=== PATIENT | male | born 1960 | race Caucasian/White ===

== ENCOUNTER 2024-04-21 10:37 | Inpatient (IN) | payer OTHER ==
[2024-04-21 11:15] VITALS: BMI 25.6
[2024-04-21] MEDS ORDERED: ACETAMINOPHEN 325 MG TABLET (FP) PO PRN (11:41)
[2024-04-21] MEDS ORDERED: LOPERAMIDE HCL 2 MG CAPSULE PO PRN (11:41)
[2024-04-21] MEDS ORDERED: BISMUTH SUBSALICYLATE 524 MG/30 ML PO PRN (11:41)
[2024-04-21] MEDS ORDERED: BENZONATATE 200 MG CAPSULE PO PRN (11:41)
[2024-04-21] MEDS ORDERED: BENZOCAINE/MENTHOL (CHLORASEPTIC ) LOZENGE MM PRN (11:41)
[2024-04-21] MEDS ORDERED: ONDANSETRON *ODT* 4 MG TABLET SL PRN (11:41)
[2024-04-21] MEDS ORDERED: IBUPROFEN 600 MG TABLET (FP) PO PRN (11:41)
[2024-04-21] MEDS ORDERED: guaiFENesin 600 MG TABLET.ER (FP) PO PRN (11:41)
[2024-04-21] MEDS ORDERED: IBUPROFEN 400 MG TABLET (FP) PO PRN (11:41)
[2024-04-21] MEDS ORDERED: POLYETHYLENE GLYCOL (HEALTHYLAX) 3350 17 GM PACKET PO PRN (11:41)
[2024-04-21] MEDS ORDERED: MAGNESIUM HYDROX 2400MG/30ML ORAL SUSPENSION 30 ML CUP PO PRN (11:41)
[2024-04-21] MEDS ORDERED: MAG HYDROX/AL HYDROX/SIMETH 30 ML UNIT-DOSE CUP PO PRN (11:41)
[2024-04-21] MEDS ORDERED: NALOXONE (NARCAN) HCL 4 MG/0.1 ML SPRAY NS PRN (11:41)
[2024-04-21] MEDS: THIAMINE 100 MG TABLET PO SCH (22:07)
[2024-04-21] MEDS: MELATONIN 5 MG TABLETS PO SCH (22:07)
[2024-04-22 08:59] VITALS: RESP 18
[2024-04-22] MEDS: PRENATAL VITAMINS W/ FOLIC ACID TABLET (FP) PO SCH (09:24)
[2024-04-22 11:23] LABS: CHLORIDE 103 mmol/L (98-107); SODIUM 140 mmol/L (136-145)
[2024-04-22 11:25] LABS: ANION GAP 4 mmol/L (4-13); CO2 32 mmol/L (21-32); GLUCOSE,RANDOM 91 mg/dL (74-106)
[2024-04-22 11:27] LABS: HEMATOCRIT 39.3 % (35.4-49); HEMOGLOBIN 13.5 GM/dL (11.7-16.9); MCH 32.9 pg (25.7-33.7); MCHC 34.4 g/dl (32.0-35.9); MEAN CELL VOLUME 95.5 fl (80-96); MEAN PLT VOLUME 7.3 fl (7.5-11.1); PLATELET COUNT 245 10^3/uL (134-434); RBC 4.12 M/mm3 (4.00-5.60); RDW 14.2 % (11.9-15.9); WHITE BLOOD COUNT 4.9 K/mm3 (4.0-10.0)
[2024-04-22 11:28] LABS: CREATININE 0.8 mg/dL (0.55-1.3); SGOT/AST 120 U/L (15-37); SGPT/ALT 105 U/L (13-61)
[2024-04-22 11:30] LABS: BILIRUBIN,TOTAL 0.7 mg/dL (0.2-1); TOT PROT 6.5 g/dl (6.4-8.2)
[2024-04-22 11:31] LABS: ALK PHOS 115 U/L (45-117)
[2024-04-22 11:33] LABS: BLOOD UREA NITROGEN 2.7 mg/dL (7-18)
[2024-04-22 12:40] VITALS: BP 138/84; PULSE 76; TEMP 97.8
== END 2024-04-22 14:25 | disposition home or self-care (01) | DRG 775 ==
LOC: YASAS 10:37 → Y6N 12:34
PROVIDERS: ADMIT Allergy & Immunology; ATTEND Allergy & Immunology
PROC: HZ2ZZZZ Detoxification Services for Substance Abuse Treatment (ICD-10-PCS; principal; 2024-04-21)
DX: F10.220 Alcohol dependence with intoxication, uncomplicated (principal); F10.20 Alcohol dependence, uncomplicated; F17.210 Nicotine dependence, cigarettes, uncomplicated; F10.282 Alcohol dependence with alcohol-induced sleep disorder; G47.00 Insomnia, unspecified; Z91.410 Personal history of adult physical and sexual abuse; Z63.0 Problems in relationship with spouse or partner
CPT/HCPCS: 36415; 80053; 80305; 80307; 85027; 86593; 86780; 93005; 93010

== ENCOUNTER 2024-06-04 15:23 | Inpatient (IN) | payer OTHER ==
[2024-06-04] MEDS ORDERED: METHOCARBAMOL 500 MG TABLET PO PRN (16:28)
[2024-06-04] MEDS ORDERED: NALOXONE (NARCAN) HCL 4 MG/0.1 ML SPRAY NS PRN (16:28)
[2024-06-04] MEDS ORDERED: BENZOCAINE/MENTHOL (CHLORASEPTIC ) LOZENGE MM PRN (16:28)
[2024-06-04] MEDS ORDERED: guaiFENesin 600 MG TABLET.ER (FP) PO PRN (16:28)
[2024-06-04] MEDS ORDERED: BENZONATATE 200 MG CAPSULE PO PRN (16:28)
[2024-06-04] MEDS ORDERED: POLYETHYLENE GLYCOL (HEALTHYLAX) 3350 17 GM PACKET PO PRN (16:28)
[2024-06-04] MEDS ORDERED: IBUPROFEN 400 MG TABLET (FP) PO PRN (16:28)
[2024-06-04] MEDS ORDERED: MAGNESIUM HYDROX 2400MG/30ML ORAL SUSPENSION 30 ML CUP PO PRN (16:28)
[2024-06-04] MEDS ORDERED: MAG HYDROX/AL HYDROX/SIMETH 30 ML UNIT-DOSE CUP PO PRN (16:28)
[2024-06-04] MEDS ORDERED: LOPERAMIDE HCL 2 MG CAPSULE PO PRN (16:28)
[2024-06-04] MEDS ORDERED: hydrOXYzine PAMOATE 25 MG CAPSULE (FP) PO PRN (16:28)
[2024-06-04] MEDS ORDERED: ACETAMINOPHEN 325 MG TABLET (FP) PO PRN (16:28)
[2024-06-04] MEDS ORDERED: NALOXONE HCL 0.4 MG/ML VIAL IVPUSH PRN (16:28)
[2024-06-04] MEDS: THIAMINE 100 MG TABLET PO SCH (21:26)
[2024-06-04] MEDS: MELATONIN 5 MG TABLETS PO SCH (21:26)
[2024-06-04] MEDS: TRIAMCINOLONE ACET 0.1% OINT 15 GM TUBE TP SCH (23:19)
[2024-06-05] MEDS: PRENATAL VITAMINS W/ FOLIC ACID TABLET (FP) PO SCH (09:59)
[2024-06-05] MEDS: PNEUMOC 20-VAL CONJ-DIP CRM/PF 0.5 ML SYRINGE IM ONE (12:58)
[2024-06-08] MEDS: NALTREXONE HCL 50 MG TABLET PO ONE (10:56)
[2024-06-09] MEDS: NALTREXONE HCL 50 MG TABLET PO SCH (09:46)
[2024-06-12] MEDS: AMOX TR/POT CLAV 500MG/125MG TABLETS (FP) PO SCH (17:14)
[2024-06-12] MEDS: MELATONIN 5 MG TABLETS PO SCH (21:24)
[2024-06-12] MEDS: GABAPENTIN 100 MG CAPSULE PO SCH (21:24)
[2024-06-13] MEDS: IBUPROFEN 600 MG TABLET (FP) PO PRN (04:18)
[2024-06-13] MEDS: BENZOCAINE 20 % GEL TUBE MM PRN (16:28)
[2024-06-15] MEDS: SUVOREXANT 10 MG TABLET PO PRN (21:09)
[2024-06-17] MEDS: NALTREXONE MICROSPHERES (VIVITROL) 380 MG DISP.SYRIN IM ONE (09:19)
[2024-06-17] MEDS: DOXYCYCLINE HYCLATE 100 MG TABLET PO SCH (17:33)
[2024-06-17] MEDS: SUVOREXANT 10 MG TABLET PO PRN (21:05)
[2024-06-18 05:22] VITALS: BP 134/91; PULSE 73; RESP 16; TEMP 97.3
== END 2024-06-18 10:09 | disposition home or self-care (01) | DRG 772 ==
LOC: YASAS 15:23 → Y3W 15:24
PROVIDERS: ADMIT Psychiatry & Neurology Pain Medicine; ATTEND Psychiatry & Neurology Pain Medicine
PROC: HZ42ZZZ Group Counseling for Substance Abuse Treatment, Cognitive-Behavioral (ICD-10-PCS; principal; 2024-06-04)
DX: F10.20 Alcohol dependence, uncomplicated (principal); F14.20 Cocaine dependence, uncomplicated; F17.210 Nicotine dependence, cigarettes, uncomplicated; F10.282 Alcohol dependence with alcohol-induced sleep disorder; A53.9 Syphilis, unspecified; K02.9 Dental caries, unspecified; Z59.00 Homelessness unspecified
CPT/HCPCS: 36415; 86780; 90677; G0009; J2315